=== PATIENT | female | born 1975 | race Caucasian/White ===

== ENCOUNTER → 2016-09-03 | Day surgery (SDC) | payer OTHER ==
[~2016-09-03] VITALS: Ht 157.5 cm; Wt 63.5 kg
[~2016-09-03] MED LIST: ASCO25TA PO; BENT20TA PO; BUPIVACAINE HCL 0.5% 30 ML VIAL XX ONE; BUSP15TA47 PO; CLON0.5T PO; DULO30CA PO; HYDR-3713 PO; LIDOCAINE 1% SDV INJ 30 ML VIAL XX ONE; LINZ290C PO; LR 1,000 ML IV SCH; LUNE1TAB5 PO; MIDAZOLAM INJ 2 MG/2 ML VIAL (J2250) As Ordered ONE; PERCOCET 5MG/325MG TAB PO PRN; PROPOFOL 500 MG/50 ML VIAL As Ordered ONE; dexameTHASONE 4 MG/ML 1ML VIAL (J1100) XX ONE; fentaNYL 100 MCG/2 ML INJECTION (J3010) As Ordered ONE
[2016-09-03 09:25] VITALS: BP 115/81
--- NOTE | 2016-09-04 08:42 | RO ---
DATE OF PROCEDURE: 09/03/2016 PREOPERATIVE DIAGNOSIS: Left foot bunion. POSTOPERATIVE DIAGNOSIS: Left foot bunion. PROCEDURE: Left foot bunionectomy with 1st metatarsal osteotomy. SURGEON: David Canela DPM COAT BASTER: None. ANESTHESIA: Monitored anesthesia care with preoperative injection of 18 mL of 1:1 mixture of 1% lidocaine plain and 0.5% Marcaine plain. MATERIALS: Arthrex 3.5 headless screw, #3-0 Vicryl, #4-0 Vicryl, and #4-0 nylon. INJECTABLES: 1 mL Decadron 4 mg/mL. ESTIMATED BLOOD LOSS: Minimal. COMPLICATIONS: None. CONDITION: Stable. Lisa Velazquez is a 40-year-old female who presents to [facility] with complaints of painful bunion to her left foot. She presents today for surgical correction. The patient's site and side were identified and marked in the preoperative holding area. Consent was reviewed and obtained. The risks, complications and alternatives to the procedure were explained to the patient in detail. All questions were answered. DESCRIPTION OF PROCEDURE: The patient was brought to the operating room and placed on the operating room table in supine position. Monitored anesthesia care was delivered by the anesthesia team. Preoperative injection of 18 mL of 1:1 mixture of 1% lidocaine plain and 0.5% Marcaine plain was injected to the left foot. The left foot was prepped and draped in a normal sterile fashion. A tourniquet was applied to the left ankle. Patient received Ancef 3 grams preoperatively. The tourniquet was inflated at 225 mmHg. A dorsal medial incision was drawn and carried through with a #15 blade. Dissection was carried down to the metatarsal phalangeal joint capsule. It was identified. A T-capsulotomy was performed exposing the metatarsal head. Next, a lateral release was performed releasing the lateral capsule, adductor tendon and sesamoid ligaments. The McGlamry elevator was used to free the plantar structures. Following this, a sagittal saw was used to remove the medial eminence and osteotomy was performed in the metatarsal head transposing it laterally. This was fixated with an Arthrex 3.5 headless screw. The remaining bone ledge was resected with a sagittal saw and smoothed with a rasp. The site was irrigated with normal saline. A small wedge of capsule was removed from the medial capsule tightening it effectively, pulling the toe into more medial position. The capsule was repaired with #3-0 Vicryl. Subcutaneous closure was performed with #4-0 Vicryl and skin closure with #4-0 nylon. The hallux was noted to be in a plantar flex position and a percutaneous flexor and capsule release were performed at the level of the hallux interphalangeal joint (IPJ), which improved the position of the hallux. Skin closure repair was performed with #4-0 nylon. Sterile dressings were applied. Tourniquet was deflated. The patient was brought to post anesthesia care unit (PACU) with vital signs stable and neurovascular status intact. She will be partial weightbearing on the left foot. She will followup in the office in 2 days.
== END ==
LOC: M SDC 05:46
PROVIDERS: ATTEND Podiatrist Foot & Ankle Surgery
DX: M21.612 Bunion of left foot (principal); K58.9 Irritable bowel syndrome, unspecified; M19.90 Unspecified osteoarthritis, unspecified site; F32.9 Major depressive disorder, single episode, unspecified; F41.9 Anxiety disorder, unspecified; Z79.899 Other long term (current) drug therapy
CPT/HCPCS: 28298; 88300; C1776; J0690; J1100; J2250; J3010

== ENCOUNTER → 2016-09-14 | Outpatient (CLI) | payer OTHER ==
[~2016-09-14] VITALS: Ht 157.5 cm; Wt 63.5 kg
[~2016-09-14] MED LIST changes: -BUPIVACAINE HCL 0.5% 30 ML VIAL XX ONE; -LIDOCAINE 1% SDV INJ 30 ML VIAL XX ONE; +LIDOCAINE 2% INJ 100 MG/5 ML SDV (FOR ANES.) As Ordered ONE; -LR 1,000 ML IV SCH; -MIDAZOLAM INJ 2 MG/2 ML VIAL (J2250) As Ordered ONE; +NS 1,000 ML IV SCH; -PERCOCET 5MG/325MG TAB PO PRN; +PROPOFOL 200 MG/20 ML VIAL As Ordered ONE; -PROPOFOL 500 MG/50 ML VIAL As Ordered ONE; -dexameTHASONE 4 MG/ML 1ML VIAL (J1100) XX ONE; -fentaNYL 100 MCG/2 ML INJECTION (J3010) As Ordered ONE
--- NOTE | 2016-09-14 09:20 | ROOR ---
Patient Name: Lisa Velazquez Procedure Date: 09/14/2016 8:56 AM Date of : 1975 Age: 40 Room: [facility] Gender: Female Note Status: Finalized Procedure: Colonoscopy Indications: Hematochezia, Irritable bowel syndrome with constipation Providers: Antoine SORTO MD Referring MD: EDDIE MORGAN MD Requesting Provider: Medicines: Monitored Anesthesia Care Complications: No immediate complications. Procedure: Pre-Anesthesia Assessment: - The heart rate, respiratory rate, oxygen saturations, blood pressure, adequacy of pulmonary ventilation, and response to care were monitored throughout the procedure. The Colonoscope was introduced through the anus and advanced to 6 cm into the ileum. The colonoscopy was performed without difficulty. The patient tolerated the procedure well. The quality of the bowel preparation was good. Findings: The perianal and digital rectal examinations were normal. (Exam: Complete, Prep: Good or Excellent.) A few small-mouthed diverticula were found in the sigmoid colon. Internal hemorrhoids were found during retroflexion. The hemorrhoids were small. The entire colon appeared normal on direct and retroflexion views. Impression: - Mild diverticulosis in the sigmoid colon. - Internal hemorrhoids. - The entire colon is normal on direct and retroflexion views. - No specimens collected. Recommendation: - Use Linzess (linaclotide) 290 mcg PO daily. - (if Linzess 290 mg dose is too aggressive, then reduction to 145mg dose may be considered)-let me know Antoine Sorto MD Antoine SORTO MD 09/14/2016 9:19:34 AM This report has been signed electronically. Number of Addenda: 0 Note Initiated On: 09/14/2016 8:56 AM Estimated Blood Loss: Estimated blood loss: none.
[2016-09-14 09:35] VITALS: BP 120/79
== END ==
LOC: M OPP 07:33
PROVIDERS: ATTEND Internal Medicine Gastroenterology
DX: K92.1 Melena (principal); K58.1 Irritable bowel syndrome with constipation; K57.30 Diverticulosis of large intestine without perforation or abscess without bleeding; K64.8 Other hemorrhoids; F41.9 Anxiety disorder, unspecified; F32.9 Major depressive disorder, single episode, unspecified; D69.6 Thrombocytopenia, unspecified; Z79.899 Other long term (current) drug therapy

== ENCOUNTER → 2016-09-20 | Day surgery (SDC) | payer OTHER ==
[~2016-09-20] MED LIST changes: +BUPIVACAINE HCL 0.5% 30 ML VIAL As Ordered ONE; +DESFLURANE 240 ML INHALANT As Ordered ONE; +KETOROLAC 60 MG/2 ML VIAL (J1885) As Ordered ONE; +LIDOCAINE 1% MDV 20ML VIAL As Ordered ONE; +LR 1,000 ML IV SCH; +MIDAZOLAM INJ 2 MG/2 ML VIAL (J2250) As Ordered ONE; -NS 1,000 ML IV SCH; +ONDANSETRON 4MG/2ML VIAL (J2405) As Ordered ONE; +ONDANSETRON 4MG/2ML VIAL (J2405) IV PRN; +OXYC1TAB23 PO; +PERCOCET 5MG/325MG TAB PO PRN; +fentaNYL 100 MCG/2 ML INJECTION (J3010) As Ordered ONE
[2016-09-20 19:10] VITALS: BP 120/79
--- NOTE | 2016-09-20 19:42 | REP ---
LEFT FOOT COMPLETE: 09/20/2016. Clinical history: Intraoperative fluoroscopy for bunionectomy. Findings: Four images from C-arm fluoroscopy provided to Dr. Canela of the podiatry division for a bunionectomy are reviewed. Osteotomy and bunionectomy evident with two K-wires across the osteotomy site. The final alignment is near anatomic. Fluoroscopy time: 60 seconds. Signed by Mark Abrams MD 09/20/2016 07:54 P
--- NOTE | 2016-09-21 16:54 | RO ---
DATE OF PROCEDURE: 09/20/2016 PREPROCEDURE DIAGNOSIS: Left foot bunion with dislocation. POSTPROCEDURE DIAGNOSIS: Left foot bunion with dislocation. PROCEDURE: Left foot revisional bunionectomy and relocation and fixation of dislocated joint. SURGEON: David Canela DPM STRUCTURAL ENGINEERING TECHNICIAN: None. ANESTHESIA: Monitored anesthesia care with perioperative injection of 20 mL of a 1:1 mixture of 1% lidocaine plain and 0.5% Marcaine plain. ESTIMATED BLOOD LOSS: Minimal. MATERIALS: Arthrex 2.5 headless screw, 3.5 K-wire, #3-0 and #4-0 Vicryl, #4-0 nylon. INJECTABLES: None. COMPLICATIONS: None. CONDITION: Stable. Lisa Velazquez is a 40-year-old female who had bunion surgery 2 weeks ago by myself. Yesterday, she presented for her second postoperative visit. X-rays were taken, and there was noted to be dislocation of the osteotomy site. She was noted to be ambulating in normal shoe gear despite being told to remain in surgical shoe. Decision was made to bring her to the operating room for relocation and fixation of bone. The patient's side and site were identified in the preoperative holding area. Consent was reviewed and obtained. All risks, complications, and alternatives to the procedure were explained to the patient. Indeed, all questions were answered. DESCRIPTION OF PROCEDURE: The patient was brought to the operating room, placed on the operative table in supine position, monitored anesthesia care was delivered by the anesthesia team. Perioperative injection of 20 mL of a 1:1 mixture of 1% lidocaine plain and 0.5% Marcaine plain were injected in the left foot. The patient received Ancef preoperatively. A tourniquet was applied to the left ankle. The left foot was prepped and draped in the normal sterile fashion. Tourniquet was inflated to 225 mmHg. The sutures were removed with scissors and the dorsal incision was re-opened with a #15 blade. Dissection was carried down until the capsule was identified. Remaining Vicryl stitches were removed. A linear capsulotomy was performed, exposing the metatarsal. There was noted to be plantar and proximal displacement of the metatarsal head. The screw, which was fixated, was only in the distal portion of the bone and was not fixated to the proximal portion. The 3.5 screw was removed with screwdriver. The osteotomy edges were freshened using [place] and the bone was relocated with manual traction to the exact position where the osteotomy initially was made. This was fixated with an Arthrex 2.5 headless screw as well as two 3.5 K-wires. The bone was tested. It was not mobile under manual pressure and position was verified on C-arm. No motion was noted during range of motion of the first metatarsophalangeal joint. The site was irrigated with normal saline. The extensor tendon was inspected and noted to be in good condition. Capsular repair was performed with #3-0 Vicryl, subcutaneous closure with #4-0 Vicryl and skin closure with #4-0 nylon. She was placed into posterior splint. She will be strict non-weightbearing to the left foot with crutches. She will followup in the office in 4 days.
== END ==
LOC: M SDC 14:52
PROVIDERS: ATTEND Podiatrist Foot & Ankle Surgery
DX: S93.122A Dislocation of metatarsophalangeal joint of left great toe, initial encounter (principal); T84.328A Displacement of other bone devices, implants and grafts, initial encounter; M20.12 Hallux valgus (acquired), left foot; X58.XXXA Exposure to other specified factors, initial encounter; Y92.89 Other specified places as the place of occurrence of the external cause; Y93.89 Activity, other specified; Y99.8 Other external cause status; M12.9 Arthropathy, unspecified; F32.9 Major depressive disorder, single episode, unspecified; F41.9 Anxiety disorder, unspecified; Z79.899 Other long term (current) drug therapy; Z91.19 Patient's noncompliance with other medical treatment and regimen
CPT/HCPCS: 28645; 73630; C1776; J0690; J1885; J2250; J2405; J3010